=== PATIENT | female | born 1985 | race Caucasian/White ===

== ENCOUNTER 2018-06-27 07:22 | Emergency (ER) | payer OTHER, SELFPAY ==
[~2018-06-27] VITALS: Ht 170.2 cm; Wt 85.0 kg
[2018-06-27] MEDS ORDERED: KETOROLAC 30 MG/1 ML IM ONE (08:00)
[2018-06-27] MEDS ORDERED: KETOROLAC 30 MG/1 ML ONE (08:04)
[2018-06-27 08:22] LABS: BASOPHILS # (AUTO) 0.07 x10^3/uL (0-0.1); BASOPHILS % (AUTO) 1 % (0-1); EOSINOPHILS # (AUTO) 0.09 x10^3/uL (0-0.4); EOSINOPHILS % (AUTO) 1 % (1-7); LYMPHOCYTES # (AUTO) 3.26 x10^3/uL (1-3.4); LYMPHOCYTES % (AUTO) 38 % (22-44); MD NO; MEAN CORPUSCULAR HEMOGLOBIN 29.6 pg (27.0-34.8); MEAN CORPUSCULAR HGB CONC 33.4 g/dL (32.4-35.8); MEAN CORPUSCULAR VOLUME 88.7 fL (80-100); MEAN PLATELET VOLUME 9.2 fL (7.4-10.4); MONOCYTES # (AUTO) 0.56 x10^3/uL (0.2-0.8); MONOCYTES % (AUTO) 6 % (2-9); NEUTROPHILS % (AUTO) 54 % (42-75); PLATELET COUNT 213 x10^3/uL (130-400); RED BLOOD COUNT 5.47 x10^6/uL (3.82-5.3); RED CELL DISTRIBUTION WIDTH 13.4 % (9.6-15.2)
[2018-06-27 08:32] LABS: ALBUMIN 4.1 g/dL (3.4-5.0); ANION GAP 6 mmol/L (5-15); CALCIUM 8.7 mg/dL (8.5-10.1); CHLORIDE 110 mmol/L (98-107); CREATININE 0.77 mg/dL (0.55-1.02)
--- NOTE | 2018-06-27 08:36 | NUR ---
PT. IS A & O X 4 WITH C/O RIGHT KNEE PAIN AFTER RECEIVING A STEROID INJECTION IN HER RIGHT KNEE YESTERDAY. PT. HAS REDNESS NOTED AT THE SITE. PT. IS HAVING DIFFICULTY WALKING TODAY. CMS CHECKS ARE INTACT. PULSES ARE +2 THROUGHOUT. PT. WAS MEDICATED FOR PAIN ORDERED.
--- NOTE | 2018-06-27 09:19 | NUR ---
PT. WAS UPSET AND CRYING AFTER SPEAKING TO DR. OLIVERA. BELEN CONNER AND RN TU AT THE BEDSIDE DISCUSSING PT.'S CONCERNS AND REINFORCING DISCHARGE INSTRUCTIONS. RN AND PA EXPLAINED THAT NOTHING WAS FOUND TODAY BUT ENCOURAGED THE PT TO RETURN OR FOLLOW UP WITH WORSENING SYMPTOMS. PT. VERBALIZED UNDERSTANDING AND WILLINGNESS TO COMPLY. PT. WAS MORE CALM AFTER PA AND RN GAVE THE PT. REASSURANCE. PT. HAS HER RX FOR HOME PAIN MEDS AND MANAGEMENT. PT. WAS AMBULATORY TO THE DISCHARGE DESK WITH CRUTCHES. VSS, CMS CHECKS REMAIN INTACT.
[2018-06-27 09:22] VITALS: BP 128/74
== END 2018-06-27 09:25 | disposition home or self-care (01) ==
LOC: ED 08:02
DX: M25.561 Pain in right knee (principal)
CPT/HCPCS: 36415; 73564; 80048; 82040; 85025; 96372; 99284; J1885

== ENCOUNTER 2019-05-09 02:16 | Emergency (ER) | payer OTHER ==
[~2019-05-09] VITALS: Ht 167.6 cm; Wt 88.7 kg
[2019-05-09] MEDS ORDERED: ONDANSETRON ODT 4 MG ONE (02:30)
[2019-05-09] MEDS ORDERED: IBUPROFEN 800 MG TABLET ONE (02:30)
[2019-05-09] MEDS ORDERED: IBUPROFEN 800 MG TABLET PO STA (02:43)
[2019-05-09] MEDS ORDERED: SODIUM CHLORIDE 0.9% 1,000ML IVBOLUS ONE (03:00)
[2019-05-09] MEDS ORDERED: SODIUM CHLORIDE FLUSH 10ML SYR IVF ONE (03:00)
[2019-05-09] MEDS ORDERED: ONDANSETRON 2MG/ML, 2ML IVPush ONE (03:00)
[2019-05-09] MEDS ORDERED: ONDANSETRON ODT 4 MG PO ONE (03:00)
--- NOTE | 2019-05-09 03:15 | NUR ---
IV SITE STARTED, LABS DRAWN, IV FLUIDS INFUSING. CALL LIGHT WITHIN REACH
[2019-05-09] MEDS ORDERED: VENL37.52 PO (03:21)
[2019-05-09] MEDS ORDERED: BUSP5TAB2 PO (03:21)
[2019-05-09] MEDS ORDERED: ALPR0.5T7 PO (03:21)
[2019-05-09] MEDS ORDERED: ALPR0.5T5 PO (03:21)
[2019-05-09] MEDS ORDERED: ONDANSETRON 2MG/ML, 2ML ONE (03:23)
[2019-05-09 03:25] LABS: BASOPHILS # (AUTO) 0.01 x10^3/uL (0-0.1); BASOPHILS % (AUTO) 0 % (0-1); EOSINOPHILS # (AUTO) 0.03 x10^3/uL (0-0.4); EOSINOPHILS % (AUTO) 1 % (1-7); LYMPHOCYTES # (AUTO) 0.35 x10^3/uL (1-3.4); LYMPHOCYTES % (AUTO) 7 % (22-44); MD NO; MEAN CORPUSCULAR HEMOGLOBIN 30.4 pg (27.0-34.8); MEAN CORPUSCULAR HGB CONC 33.9 g/dL (32.4-35.8); MEAN CORPUSCULAR VOLUME 89.6 fL (80-100); MEAN PLATELET VOLUME 8.6 fL (7.4-10.4); MONOCYTES # (AUTO) 0.37 x10^3/uL (0.2-0.8); MONOCYTES % (AUTO) 8 % (2-9); NEUTROPHILS # (AUTO) 4.14 x10^3/uL (1.8-6.8); NEUTROPHILS % (AUTO) 85 % (42-75); PLATELET COUNT 177 x10^3/uL (130-400); RED CELL DISTRIBUTION WIDTH 13.5 % (9.6-15.2)
[2019-05-09 03:38] LABS: ALANINE AMINOTRANSFERASE 37 U/L (12-78); ANION GAP 8 mmol/L (5-15); CALCIUM 8.4 mg/dL (8.5-10.1); CHLORIDE 106 mmol/L (98-107); CREATININE 0.87 mg/dL (0.55-1.02)
[2019-05-09 03:40] LABS: ALKALINE PHOSPHATASE 69 U/L (45-117); BILIRUBIN,TOTAL 0.3 mg/dL (0.2-1.0); TOTAL PROTEIN 7.4 g/dL (6.4-8.2)
[2019-05-09 03:44] LABS: RAPID INFLUENZA A Negative (Negative); RAPID INFLUENZA B Negative (Negative)
--- NOTE | 2019-05-09 03:52 | NUR ---
PT RESTING ON GURNEY, MONITORS IN PLACE, SIDERAILS UP X2, ALLLIGHT WITHIN REACH. AWAITING LAB RESULTS
[2019-05-09] MEDS ORDERED: DIAZEPAM 5 MG/ML, 2ML IV STA (04:32)
[2019-05-09] MEDS ORDERED: DIAZEPAM 5 MG/ML, 2ML ONE (04:33)
--- NOTE | 2019-05-09 04:41 | NUR ---
PT MEDICATED PER MAR
--- NOTE | 2019-05-09 05:00 | NUR ---
PT UP TO BSC
[2019-05-09] MEDS ORDERED: OSELTAMIVIR 75 MG CAPSULE ONE (05:23)
[2019-05-09 05:28] VITALS: BP 104/62
[2019-05-09] MEDS ORDERED: OSELTAMIVIR 75 MG CAPSULE PO ONE (05:30)
== END 2019-05-09 06:01 | disposition home or self-care (01) ==
LOC: ED 05:45
DX: J11.1 Influenza due to unidentified influenza virus with other respiratory manifestations (principal); J06.9 Acute upper respiratory infection, unspecified; J00 Acute nasopharyngitis [common cold]; E86.0 Dehydration
CPT/HCPCS: 36415; 71046; 80053; 83605; 84145; 85025; 87040; 87081; 87400; 87486; 87581; 87633; 87798; 87880; 93005; 96361; 96374; 96375; 99285; J2405; J3360; J7030; Q0162

== ENCOUNTER 2019-05-09 19:15 | Emergency (ER) | payer OTHER ==
[~2019-05-09 19:15] MED LIST: ALPR0.5T5 PO; ALPR0.5T7 PO; BUSP5TAB2 PO; VENL37.52 PO
--- NOTE | 2019-05-09 19:29 | NUR ---
ATTEMPTED TO TRIAGE PATIENT. PATIENT STATED THAT SHE IS 'FEELING THE SAME, NOT WORSE, TAKEN TYLENOL AND MOTRIN.' REINFORCED EDUCATION GIVEN FROM DISCHARGE THIS AM. REFUSED TRIAGE PROCESS AND VITAL SIGN. PATIENT WALKED OUT IN THE MIDDLE OF THE CONVERSATION. ATTEMPTED TO STOP HER AND CONVINCE HER TO STAY. SHE STATED 'I AM LEAVING AND DON'T WANT TO BE CHARGED FOR THIS'. PATIENT LEFT WITHOUT BEING SEEN.
== END 2019-05-09 19:56 | disposition left against medical advice (07) ==
LOC: ED 19:50
DX: R50.9 Fever, unspecified (principal); Z53.21 Procedure and treatment not carried out due to patient leaving prior to being seen by health care provider

== ENCOUNTER 2020-04-05 18:26 | Emergency (ER) | payer OTHER ==
[~2020-04-05] VITALS: Ht 167.6 cm; Wt 87.1 kg
--- NOTE | 2020-04-05 18:35 | NUR ---
content coordinator: ROMAN done in triage
[2020-04-05 19:04] LABS: BASOPHILS % (AUTO) 1 % (0-1); EOSINOPHILS % (AUTO) 2 % (1-7); LYMPHOCYTES % (AUTO) 44 % (22-44); MEAN CORPUSCULAR HEMOGLOBIN 29.3 pg (27.0-34.8); MEAN CORPUSCULAR HGB CONC 33.8 g/dL (32.4-35.8); MEAN PLATELET VOLUME 8.6 fL (7.4-10.4); MONOCYTES % (AUTO) 8 % (2-9); NEUTROPHILS % (AUTO) 46 % (42-75); PLATELET COUNT 255 x10^3/uL (130-400); RED CELL DISTRIBUTION WIDTH 13.3 % (9.6-15.2)
[2020-04-05 19:05] LABS: MD NO
[2020-04-05 19:12] LABS: ALANINE AMINOTRANSFERASE 39 U/L (12-78); ALBUMIN 4.7 g/dL (3.4-5.0); ANION GAP 5 mmol/L (5-15); CALCIUM 9.2 mg/dL (8.5-10.1); CHLORIDE 108 mmol/L (98-107); CREATININE 0.94 mg/dL (0.55-1.02)
[2020-04-05 19:17] LABS: ALKALINE PHOSPHATASE 84 U/L (45-117); BILIRUBIN,TOTAL 0.4 mg/dL (0.2-1.0); TOTAL PROTEIN 8.2 g/dL (6.4-8.2)
--- NOTE | 2020-04-05 20:37 | NUR ---
PT. TO ROOM FROM LOBBY AT THIS TIME. AMBULATORY WITH STEADY GAIT.
--- NOTE | 2020-04-05 20:52 | NUR ---
PT. AMBULATORY TO FOR URINE SAMPLE. COLLECTED AND SENT TO LAB. PT. REPORTS WITHDRAWLING OFF PERCOCET X 9 DAYS "MY GHOSTED ME". PT. REPORTS LYNN, N/V/D, DIZZINESS, CP, "I HAVE A LOT GOING ON." PT. WITH MULTIPLE COMPLAINTS. ALL MONITORS PLACED.
--- NOTE | 2020-04-05 20:54 | NUR ---
NSR NOTED ON MONITOR. CALL LIGHT IN REACH. ALL SAFETY MEASUERS OBSERVED.
[2020-04-05 21:27] LABS: MICROSCOPIC NOT IND
[2020-04-05 21:40] LABS: AMPHETAMINE SCREEN, URINE Negative (Negative); BARBITURATE SCREEN, URINE Negative (Negative); BENZODIAZEPINE SCREEN, URINE Negative (Negative); CANNABINOID SCREEN, URINE Positive (Negative); COCAINE SCREEN, URINE Negative (Negative); METHADONE SCREEN, URINE Negative (Negative); OPIATE SCREEN, URINE Negative (Negative)
--- NOTE | 2020-04-05 22:15 | NUR ---
RN IN TO MEDICATE PT.; PER PT. SHE HAS ALREADY BEEN TAKING CLONIDINE 0.1 MG FOR THE LAST 7 NIGHTS WITHOUT RELIEF FROM WITHDRAWL SYMPTOMS. PT. REQUESTING RN TO SPEAK WITH MD AGAIN.
--- NOTE | 2020-04-05 22:30 | NUR ---
SPOKE WITH DEACON ELLSWORTH AND DR. WASHINGTON ABOUT PT. REQUEST FOR SOMETHING DIFFERENT THAN CLONOPIN; ZOFRAN TO BE ORDERD AND PT. TO D/C WITH RX FOR ZOFRAN PER SENG. AWAING PAPERS.
[2020-04-05] MEDS ORDERED: ONDANSETRON ODT 4 MG ONE (22:37)
[2020-04-05 22:42] VITALS: BP 121/78
[2020-04-05] MEDS ORDERED: ONDANSETRON ODT 4 MG PO ONE (23:00)
== END 2020-04-05 22:45 | disposition home or self-care (01) ==
LOC: ED 22:00
DX: F41.1 Generalized anxiety disorder (principal); R06.02 Shortness of breath; R00.0 Tachycardia, unspecified; R00.2 Palpitations
CPT/HCPCS: 36415; 80053; 80307; 81003; 84703; 85025; 93005; 99284; Q0162